=== PATIENT | male | born 1975 | race Hispanic/Latino ===

== ENCOUNTER → 2020-10-11 | Day surgery (SDC) | payer OTHER ==
[2020-10-07 15:09] LABS: BASOPHILS % 0.5 % (0.0-1.0); EOSINOPHILS # (AUTO) 0.1 (0.0-0.4); EOSINOPHILS % 1.1 % (0.0-6.0); HEMATOCRIT 38.1 % (38.2-49.6); HEMOGLOBIN 10.9 g/dL (14.0-18.0); LYMPHOCYTES # (AUTO) 1.7 (1.0-3.2); LYMPHOCYTES % 26.4 % (18.0-39.1); MEAN CORPUSCULAR HEMOGLOBIN 19.6 pg (28-32); MEAN CORPUSCULAR HGB CONC 28.6 g/dL (31-35); MEAN CORPUSCULAR VOLUME 68.5 fL (81-99); MONOCYTES # (AUTO) 0.5 (0.2-0.8); MONOCYTES % 8.2 % (4.4-11.3); NEUTROPHILS # (AUTO) 4.1 (2.1-6.9); NEUTROPHILS % 63.6 % (38.7-80.0); PLATELET COUNT 241 x10e3/uL (140-360); RED BLOOD COUNT 5.56 x10e6/uL (4.3-5.7); RED CELL DISTRIBUTION WIDTH 24.6 % (11.7-14.4)
[2020-10-07 15:26] LABS: ANION GAP 12.9 mmol/L (8-16); BLOOD UREA NITROGEN 17 mg/dL (7-26); BUN/CREATININE RATIO 15 (6-25); CALCIUM 8.7 mg/dL (8.4-10.2); CARBON DIOXIDE 25 mmol/L (22-29); CHLORIDE 107 mmol/L (98-107); CREATININE, SERUM 1.15 mg/dL (0.72-1.25); EST GLOMERULAR FILTRATION RATE > 60 ML/MIN (60-); GLUCOSE 101 mg/dL (74-118); POTASSIUM 3.9 mmol/L (3.5-5.1); SODIUM 141 mmol/L (136-145)
[~2020-10-11] MED LIST: AMLODIPINE BESYL5 MG PO; FERROUS SULFAT325 MG PO; ZESTRIL10 MG PO
[2020-10-11 09:25] VITALS: BP 122/70
== END | disposition home or self-care (01) ==
LOC: OR 05:59
PROVIDERS: ATTEND Surgery
DX: K64.5 Perianal venous thrombosis (principal); Z86.010 Personal history of colon polyps; K57.30 Diverticulosis of large intestine without perforation or abscess without bleeding; K21.9 Gastro-esophageal reflux disease without esophagitis; D64.9 Anemia, unspecified; I10 Essential (primary) hypertension; Z01.810 Encounter for preprocedural cardiovascular examination; Z01.812 Encounter for preprocedural laboratory examination; Z20.822 Contact with and (suspected) exposure to COVID-19
CPT/HCPCS: 36415; 45378; 80048; 85025; 93005; U0002

== ENCOUNTER 2020-11-12 08:18 | Observation (INO) | payer OTHER ==
[~2020-11-12] VITALS: Ht 180.3 cm; Wt 100.7 kg
[2020-11-12] MEDS ORDERED: AMLODIPINE BESYL5 MG PO (09:16)
[2020-11-12 09:43] LABS: BASOPHILS % 0.4 % (0.0-1.0); EOSINOPHILS # (AUTO) 0.1 (0.0-0.4); EOSINOPHILS % 1.9 % (0.0-6.0); HEMOGLOBIN 12.6 g/dL (14.0-18.0); LYMPHOCYTES # (AUTO) 1.3 (1.0-3.2); LYMPHOCYTES % 24.5 % (18.0-39.1); MEAN CORPUSCULAR HEMOGLOBIN 21.7 pg (28-32); MEAN CORPUSCULAR HGB CONC 30.7 g/dL (31-35); MEAN CORPUSCULAR VOLUME 70.7 fL (81-99); MONOCYTES # (AUTO) 0.4 (0.2-0.8); MONOCYTES % 7.4 % (4.4-11.3); NEUTROPHILS # (AUTO) 3.4 (2.1-6.9); NEUTROPHILS % 65.4 % (38.7-80.0); PLATELET COUNT 225 x10e3/uL (140-360)
[2020-11-12] MEDS ORDERED: LIDOCAINE 1% W/EPINEPHRINE 20 ML VIAL ONE (10:26)
[2020-11-12] MEDS ORDERED: BUPIVACAINE 0.25% 30ML SDV ONE (10:26)
[2020-11-12] MEDS ORDERED: LIDOCAINE HCL 2% 30 ML TUBE ONE (10:26)
[2020-11-12] MEDS ORDERED: BUPIVACAINE LIPOSOME/PF 266 MG/20 ML IJ ONE (10:27)
[2020-11-12] MEDS ORDERED: ACETAMINOPHEN 1000 MG/100 ML 100 ML IV ONE (12:19)
[2020-11-12] MEDS ORDERED: FENTANYL CITRATE/PF 100MCG/2 ML INJ ONE (13:14)
[2020-11-12] MEDS ORDERED: MIDAZOLAM HCL 2 MG/2 ML VIAL ONE (13:14)
[2020-11-12] MEDS ORDERED: NALOXONE HCL INJ 0.4 MG/ML AMP IV PRN (13:15)
[2020-11-12] MEDS ORDERED: ACETAMINOPHEN 1000 MG/100 ML IV PRN (13:15)
[2020-11-12] MEDS ORDERED: HYDROCODONE/APAP 7.5MG-325MG 1 EA TAB PO PRN (13:15)
[2020-11-12] MEDS: HYDROMORPHONE 0.2MG/ML-SOD CHL 30ML PCA SYRINGE IV PRN (13:28)
[2020-11-12 15:05] VITALS: BP 123/78
[2020-11-12 15:23] VITALS: BP 123/78
[2020-11-12 15:31] VITALS: BP 123/78
[2020-11-12 15:54] VITALS: BP 123/78
[2020-11-12] MEDS: SODIUM CHLORIDE 0.9% 1000ML 1,000 ML IV SCH ×2 (17:30→23:15)
[2020-11-12] MEDS: CEFOXITIN 1GM/0.9% NS 50ML 50 ML IV SCH ×2 (17:31→23:35)
[2020-11-12] MEDS ORDERED: ONDANSETRON HCL INJ 2MG/ML 2ML 2 MG/ML VIAL ONE (19:09)
[2020-11-12] MEDS ORDERED: GLYCOPYRROLATE INJ 0.2 MG/ML VIAL ONE (19:09)
[2020-11-12] MEDS ORDERED: SEVOFLURANE INHAL SOLN 250 ML PEN BTL ONE (19:09)
[2020-11-12] MEDS ORDERED: DEXAMETHASONE SOD PHOS INJ 4 MG/ML VIAL ONE (19:09)
[2020-11-12] MEDS ORDERED: PROPOFOL IV EMULSION 10 MG/ML 20 ML VIAL ONE (19:09)
[2020-11-12] MEDS ORDERED: LIDOCAINE HCL 2% LOCAL INJ 5 ML SDV VIAL INJ ONE (19:09)
[2020-11-12] MEDS ORDERED: KETOROLAC TROMETHAMINE 30 MG/ML VIAL ONE (19:09)
[2020-11-12] MEDS ORDERED: POVIDONE IODINE 0.05% 0.05 % ML PO ONE (19:09)
[2020-11-12 19:59] VITALS: BP 125/84
[2020-11-12 22:27] VITALS: BP 125/84
[2020-11-13 00:22] VITALS: BP 129/77
[2020-11-13] MEDS: SODIUM CHLORIDE 0.9% 1000ML 1,000 ML IV SCH (03:30)
[2020-11-13 05:14] VITALS: BP 131/91
[2020-11-13] MEDS: CEFOXITIN 1GM/0.9% NS 50ML 50 ML IV SCH ×2 (06:03→12:16)
[2020-11-13] MEDS: HYDROMORPHONE 0.2MG/ML-SOD CHL 30ML PCA SYRINGE IV PRN (07:05)
[2020-11-13 07:36] VITALS: BP 150/90
[2020-11-13 08:02] VITALS: BP 150/90
[2020-11-13] MEDS ORDERED: AMLODIPINE BESYLATE 5 MG TAB PO SCH (09:00)
[2020-11-13] MEDS ORDERED: LISINOPRIL 10 MG TAB PO SCH (09:00)
[2020-11-13 11:37] VITALS: BP 118/77
[2020-11-13 15:43] VITALS: BP 150/103
== END 2020-11-13 17:03 | disposition home or self-care (01) ==
LOC: OR 08:18 → PACU V 13:32 → MED/SURG 15:01
PROVIDERS: ADMIT Surgery; ATTEND Surgery
DX: K60.2 Anal fissure, unspecified (principal); K64.5 Perianal venous thrombosis; Z01.812 Encounter for preprocedural laboratory examination; Z20.822 Contact with and (suspected) exposure to COVID-19; I10 Essential (primary) hypertension; R06.83 Snoring
CPT/HCPCS: 36415; 46261; 85025; 88304; 96361; G0378 ×2; J0131; J1100; J1885; J2001; J2250; J2405; J2704; J3010; J7030 ×2; U0002; 96360